=== PATIENT | male | born 1965 | race Caucasian/White ===

== ENCOUNTER 2018-03-14 17:15 | Observation (INO) ==
[2018-03-14] MEDS ORDERED: *HR* HYDROcodone/Acet 5/325 mg TABLET PO PRN (20:31)
[2018-03-14] MEDS ORDERED: Naloxone 0.4 MG/ML INJ IVP PRN (20:31)
[2018-03-14] MEDS ORDERED: Acetaminophen 325 MG TABLET PO PRN (20:31)
--- NOTE | 2018-03-14 20:45 | Internal Med History&Physical ---
Date of Encounter: 03/14/18 Time of Encounter: 20:36 Internal Medicine - H&P: HPI Chief complaint: LE swelling, pain Admitted From: Hospital to Hospital Transfer Plans for Post Hospital Care: Home History of present illness: Mr. Sanchez is a 52 year old male with past medical history of IgA nephritis status post renal transplant, factor V leiden deficiency, transverse myelitis with some residual deficits presents to emergency department in [place] with complaint of lower extremity swelling. He states he does have intermittent swelling and likely time to time but usually goes away after exercise. He states that he did try anxious and by this morning however it remained swollen. It is located in the left lower extremity and started at the calf is currently improved to just ankle down. He also admits to a burning sensation in the calf which is worsened with exercise. He has never experienced anything like this in the past. He denies any recent symptoms of chest pain, shortness of breath, fevers, chills, nausea, vomiting, which is a bowel movement. In the [place] emergency department, he was also noted that his H/H had significantly decreased to 8.6/25.9. His baseline hemoglobin is around 12. He denies any melena or hematochezia. He was recently admitted to [place] one month ago and was diagnosed with pancreatitis and states that his bowel movements have been somewhat loose but has been brown and green in color. He states he was started on an elimination diet has been tolerating this well, however he does admit to occasional epigastric pain. In [place] ED, vital signs were significant for mildly elevated BP at 172/79 , otherwise unremarkable. EKG was reportedly within normal limits. Pounds are significant for H&H as above, P1/creatinine of 20/1.12 which is at baseline. D- dimer was elevated at 1308 however ultrasound was not readily available he was transferred to this facility. Of note, fecal occult blood test was negative. Past medical history as above PShx: hernia, kidney transplant 19 years ago Social: denies smoking, rare alcohol use (2-3/month), denies drug use Family history: father and brother with factor V Past Med Surg Social Fam HX - Past Medical History Medical history: DVT, hypertension, other Additional medical history: transverse myelitis, factor V Psychiatric history: no psych history - Past Surgical History Additional surgical history: kidney transplant, cord decompression - Social History Smoking Status: Never smoker Smokeless Tobacco Status: Yes (Quit 3.5 years ago) Alcohol use: rarely Drug use: none - Family History Father Hx Family Cardiac Disorders: Yes ([place]) Hx Family Endocrine Disorder: Yes (diabetes) Internal Medicine - H&P: Meds CycloSPORINE, Mod (Neoral) [Neoral] 50 mg PO BID 05/20/17 [History] Mycophenolate Sodium [Myfortic] 720 mg PO BID 05/20/17 [History] PredniSONE [Chris] 3 mg PO DAILY 05/20/17 [History] Carvedilol 12.5 mg PO BID 02/11/18 [History] Lisinopril [Zestril] 10 mg PO DAILY 02/11/18 [History] raNITIdine HCl [Zantac] 150 mg PO BID 03/14/18 [History] 3 Allergy/AdvReac Type Severity Reaction Status Date / Time No Known Allergies Allergy Verified 03/14/18 15:04 All Systems PM: A 10-system review of systems was performed and is negative for pertinent findings except as documented above in the HPI. - Constitutional Constitutional: no chills, no fatigue, no fever(s), no malaise - Cardiovascular Cardiovascular ROS IM: edema, no chest pain, no dyspnea, no dyspnea on exertion , no lightheadedness, no orthopnea, no palpitations, no syncope - Respiratory Respiratory: no cough, no dyspnea, no hemoptysis, no dyspnea on exertion, no pain on inspiration - Gastrointestinal Gastrointestinal: abdominal pain, bloating, loose stools, no change in bowel habits, no constipation, no cramping, no diarrhea, no dyspepsia, no hematochezia , no melena, no nausea, no vomiting - Musculoskeletal Musculoskeletal ROS IM: muscle weakness (at baseline), numbness (at baseline), no tingling - Integumentary Integumentary IM: no erythema, no rash, no jaundice - Neurological Neurological ROS: no numbness, no tingling, no weakness - Constitutional Vitals: Temp Pulse Resp BP Pulse Ox 98.0 F 54 14 159/81 100 03/14/18 19:39 03/14/18 19:39 03/14/18 19:39 03/14/18 19:39 03/14/18 19:39 Exam: Gen.: Vitals noted. No acute distress. AAOx3 HEENT: PERRL/EOMI, oropharynx clear, Normocephalic, atraumatic, MMM Cardiac: RRR, no murmur, +S1/S2. Mildly bradycardic Pulmonary: CTA bilaterally, no wheezes, rales or rhonchi, equal chest expansion Abdomen: soft, nontender, BS noted, no guarding, no rebound. MSK: ROM intact, no joint swelling noted. Mild decreased strength on right LE Extremities: No cyanosis or clubbing. LLE with pitting edema from ankle down. Pulses present. No calf tenderness but "he can feel it" Neuro: A&Ox3, moves all extremities, chronic focal defecits Psych: Appropriate mood and behavior Internal Med - H&P Results - Labs CBC & Chem 7: 03/14/18 21:56 - Assessment and plan (1) DVT (deep venous thrombosis) Current Visit: Yes Status: Suspected Assessment and plan: - Suspected DVT with known history of factor V leiden deficiency - Elevated d-dimer in [place], 1308 - No previous history of DVT. No recent trauma or surgery - History of kidney disease with transplant. At baseline levels Plan - Doppler ordered and pending - Will start on heparin gtt and discontinue if negative study - Low suspicion of PE, No chest pain, SOB, bradycardia Qualifiers: DVT location: lower extremity Affected thrombotic vein of extremity: unspecified lower extremity distal vein Chronicity: acute Laterality: left Qualified Code(s): I82.4Z2 - Acute embolism and thrombosis of unspecified deep veins of left distal lower extremity (2) Anemia Current Visit: Yes Status: Acute Assessment and plan: - H/H of 8.6/25.9 - Baseline Hgb around 12, most recently documented 1 month ago - denies signs of bleed, FOBT negative at [place] - Reports epigastric pain, may be related to previous finding of pancreatitis vs gastritis - No abdominal tenderness on exam Plan - Monitor H/H with AM labs. Getting heparin for possible DVT - Consult to GI for possible EGD - NPO midnight - Transfuse as necessary Qualifiers: Anemia type: unspecified type Qualified Code(s): D64.9 - Anemia, unspecified (3) Transverse myelitis Current Visit: Yes Status: Chronic Assessment and plan: at baseline with residual defecits on right. Midchest down (4) Leg edema, left Current Visit: Yes Status: Acute Assessment and plan: as per DVT as above other etiolgies include kidney disease, new onset CHF (5) HTN (hypertension) Current Visit: Yes Status: Chronic Assessment and plan: Mildly elevated at 159/81 Continue home meds Qualifiers: Hypertension type: essential hypertension Qualified Code(s): I10 - Essential (primary) hypertension (6) Renal transplant recipient Current Visit: Yes Status: Chronic Assessment and plan: Secondary to IgA nephritis. - Continue home prednisone and immunosuppresives. - Do not suspect adrenal insufficiency, BP wnl, no abdominal pain. - Time Spent With Patient Total time spent is greater than 50% in coordination of care (as documented) at patient's floor/unit and/or counseling patient:
[2018-03-14] MEDS ORDERED: *HR* Heparin 5,000 UNIT/ML VIAL IVP ONE (20:58)
[2018-03-14] MEDS ORDERED: *HR* Heparin 5,000 UNIT/ML VIAL IVP PRN ×2 (20:58)
[2018-03-14] MEDS ORDERED: Heparin 25,000 UNIT/500 ML D5W 25,000 UNIT/500 ML BAG IVC SCH (21:00)
[2018-03-14] MEDS: CycloSPORINE, Mod (Neoral) 25 MG CAPSULE PO SCH (21:23)
[2018-03-14] MEDS: Mycophenolate Sodium (DR) 180 MG TABLET.DR PO SCH ×2 (21:23→22:57)
[2018-03-14 22:26] LABS: Hematocrit 30.7 % (37.5-50.1); Hemoglobin 10.1 g/dL (12.9-16.9); Mean Corpuscular HGB Conc 32.9 g/dL (31.6-35.5); Mean Corpuscular Hemoglobin 30.7 pg (28.0-33.3); Mean Corpuscular Volume 93.3 fL (83.0-100.0); Mean Platelet Volume 9.8 fL (9.4-12.4); Platelet Count 225 K/mcL (140-400); Red Blood Count 3.29 M/mcL (4.19-5.50); Red Cell Distribution Width 12.8 % (11.5-14.5)
[2018-03-14 22:32] LABS: Heparin anti-factor XA UFH 0.05 IU/mL (0.30-0.70)
[2018-03-14 22:33] LABS: Prothrombin Time 11.6 Seconds (9.4-12.1)
[2018-03-15 05:40] LABS: Basophils % 0.4 %; Eosinophils # 0.3 K/mcL (0.0-0.6); Eosinophils % 5.9 %; Hematocrit 26.4 % (37.5-50.1); Hemoglobin 8.6 g/dL (12.9-16.9); Immature Granulocytes % 0.2 % (0-4); Lymphocytes # 1.4 K/mcL (0.6-4.6); Lymphocytes % 27.1 %; Mean Corpuscular HGB Conc 32.6 g/dL (31.6-35.5); Mean Corpuscular Hemoglobin 29.5 pg (28.0-33.3); Mean Corpuscular Volume 90.4 fL (83.0-100.0); Mean Platelet Volume 9.4 fL (9.4-12.4); Monocytes # 0.6 K/mcL (0.0-1.3); Monocytes % 11.3 %; Neutrophils # 2.9 K/mcL (1.6-8.9); Platelet Count 194 K/mcL (140-400); Red Blood Count 2.92 M/mcL (4.19-5.50); Red Cell Distribution Width 12.9 % (11.5-14.5); Segmented Neutrophils % 55.1 %
[2018-03-15 06:05] LABS: BUN/Creatinine Ratio 19 (6-26); Blood Urea Nitrogen 21 mg/dL (6-20); Calcium 8.5 mg/dL (8.6-10.3); Carbon Dioxide 27 mEq/L (23-29); Chloride 109 mEq/L (98-107); Chol/HDL Ratio 4.2 (0-4.9); Cholesterol 143 mg/dL (< 200); Glucose 101 mg/dL (70-105); HDL Cholesterol 34 mg/dL (40-59); LDL Cholesterol,Calculated 96 mg/dL (0-99); Osmolality,Calculated 295 (280-300); Potassium 3.7 mEq/L (3.5-5.1); Sodium 141 mEq/L (136-145); Triglycerides 63 mg/dL (< 150); eGFR For Non-African Americans > 60 (> 60)
[2018-03-15] MEDS: predniSONE 1 MG TABLET PO SCH (08:37)
[2018-03-15] MEDS: Mycophenolate Sodium (DR) 180 MG TABLET.DR PO SCH ×2 (08:58→21:04)
[2018-03-15] MEDS: CycloSPORINE, Mod (Neoral) 25 MG CAPSULE PO SCH ×2 (08:58→21:04)
--- NOTE | 2018-03-15 09:53 | Internal Med Progress Note ---
Hospitalist Progress Note - Encounter Date of Encounter: 03/15/18 Time of Encounter: 09:47 - Subjective Interval History: Patient seen and examined at bedside Deneis any ain or discomfort. Left leg swollen +1 pitting edema. He does admit to recent long car trip to [place]. He has Hx of factor five Leiden, Cont with heparin until Doppler confirmed. Monitor for bleeding - Exam Vitals: Temp Pulse Resp BP Pulse Ox 98.2 F 56 15 149/78 96 03/15/18 07:48 03/15/18 07:48 03/15/18 07:48 03/15/18 07:48 03/15/18 07:48 Exam: Gen.: Vitals noted. No acute distress. AAOx3 HEENT: PERRL/EOMI, oropharynx clear, Normocephalic, atraumatic, MMM Cardiac: RRR, no murmur, +S1/S2. Mildly bradycardic Pulmonary: CTA bilaterally, no wheezes, rales or rhonchi, equal chest expansion Abdomen: soft, nontender, BS noted, no guarding, no rebound. MSK: ROM intact, no joint swelling noted. Mild decreased strength on right LE Extremities: No cyanosis or clubbing. LLE with pitting edema from ankle down. Pulses present. No calf tenderness Neuro: A&Ox3, moves all extremities, chronic focal defecits Psych: Appropriate mood and behavior - Assessment and Plan (1) Renal transplant recipient Current Visit: Yes Status: Chronic Assessment and Plan: Secondary to IgA nephritis. - Continue home prednisone and immunosuppresives. - Do not suspect adrenal insufficiency, BP wnl, no abdominal pain. (2) HTN (hypertension) Current Visit: Yes Status: Chronic Assessment and Plan: Continue home meds (3) Transverse myelitis Current Visit: Yes Status: Chronic Assessment and Plan: at baseline with residual defecits on right. Midchest down (4) DVT (deep venous thrombosis) Current Visit: Yes Status: Suspected Assessment and Plan: - Suspected DVT with known history of factor V leiden deficiency- vascular preliminary negative will stop Heparin - Elevated d-dimer in [place], 1308 - No previous history of DVT. No recent trauma or surgery - History of kidney disease with transplant. At baseline levels -will consult hematology will need follow up as outpatient - Low suspicion of PE, No chest pain, SOB, bradycardia (5) Epigastric pain Current Visit: No Status: Acute Assessment and Plan: 1- GI consulted appreciate recommendations - will have clear liquids today EGB tomorrow afternoon - has had drop in Hgb -occult stool negative -cont with PPI - (6) Leg edema, left Current Visit: Yes Status: Acute Assessment and Plan: - Venous doppler preliminary is negative for DVT - has hx of renal disease he is at baseline -will check echo to rule out possible new onset CHF - Time Spent with Patient Total time spent is greater than 50% in coordination of care (as documented) at patient's floor/unit and/or counseling patient: Internal Medicine: Result - Labs CBC & Chem 7: 03/15/18 11:14 03/15/18 05:30 Labs: Short CBC 03/14/18 03/15/18 Range/Units 21:56 05:30 WBC 5.5 5.2 (4.3-11.1) K/mcL Hgb 10.1 L D 8.6 L D (12.9-16.9) g/dL Hct 30.7 L 26.4 L (37.5-50.1) % Plt Count 225 194 (140-400) K/mcL Neutrophils # 2.9 (1.6-8.9) K/mcL BMP 03/15/18 05:30 Sodium 141 Potassium 3.7 Chloride 109 H Carbon Dioxide 27 BUN 21 H Creatinine 1.13 Glucose 101 Calcium 8.5 L - ABG Interpretation ABG results: PT/INR, D-dimer PT 11.6 Seconds (9.4-12.1) 03/14/18 21:56 (2) HTN (hypertension) Qualifiers: Hypertension type: essential hypertension Qualified Code(s): I10 - Essential (primary) hypertension (4) DVT (deep venous thrombosis) Qualifiers: DVT location: lower extremity Affected thrombotic vein of extremity: unspecified lower extremity distal vein Chronicity: acute Laterality: left Qualified Code(s): I82.4Z2 - Acute embolism and thrombosis of unspecified deep veins of left distal lower extremity
[2018-03-15 11:40] LABS: Hematocrit 28.7 % (37.5-50.1); Hemoglobin 9.5 g/dL (12.9-16.9)
--- NOTE | 2018-03-15 12:46 | Gastroenterology Consult Note ---
<Luc Dior kAilah - Last Filed: 03/15/18 12:44> Date of Encounter: 03/15/18 Time of Encounter: 11:45 - Assessment and plan (1) Anemia Current Visit: Yes Status: Acute Assessment and plan: Hgb 8.6 at [place] ED, with baseline around 12. On admission here, Hgb 10.1 and this AM Hgb 8.6. Plan for EGD and colonoscopy tomorrow if Doppler negative for DVT. Patient refused to sign consent until he spoke with Dr. Low about the procedures and his history of renal transplant. Qualifiers: Anemia type: unspecified type Qualified Code(s): D64.9 - Anemia, unspecified (2) Epigastric pain Current Visit: No Status: Acute Assessment and plan: Continue PPI, plan for EGD. (3) Leg edema, left Current Visit: Yes Status: Acute Assessment and plan: If Doppler negative for DVT, will plan for scopes tomorrow. - Time Spent With Patient Total time spent is greater than 50% in coordination of care (as documented) at patient's floor/unit and/or counseling patient: GI History of Present Illness - Data of Consult Patient: new to practice Consult date: 03/15/18 Requesting Physician: India Zacarias MD - Consult Narrative Reason for consult: Anemia, gastritis History of present illness: Mr. Sanchez is a 52 year old male with PMHx of IgA nephritis status post renal transplant, factor V leiden deficiency, transverse myelitis with some residual deficits, DVT, HTN who presented to the ED at [place] with left lower extremity swelling. He denies fever, chills, chest pain shortness of breath, nausea, vomiting, melena, or hematochezia. He was found to have Hgb 8.6 with baseline around 12. On admission here, Hgb 10.1 and this AM Hgb 8.6. D-Dimer in ED was elevated to 1308 concerning for DVT. He was recently admitted to [place] one month ago and was diagnosed with pancreatitis. We were consulted to evaluate his anemia. Procedures: None NSAIDs: None Anticoagulation: None Past Med Surg Social Fam HX - Past Medical History Medical history: DVT, hypertension, other Additional medical history: transverse myelitis, factor V Psychiatric history: no psych history - Past Surgical History Additional surgical history: kidney transplant, cord decompression - Social History Smoking Status: Never smoker Smokeless Tobacco Status: Yes (Quit 3.5 years ago) Alcohol use: rarely Drug use: none - Family History Father Hx Family Cardiac Disorders: Yes ([place]) Hx Family Endocrine Disorder: Yes (diabetes) - Gastrointestinal Gastrointestinal: Present: as per HPI - Constitutional Constitutional: as per HPI - EENT Eyes: as per HPI Ears: Present: as per HPI Nose, mouth and throat: Present: as per HPI - Cardiovascular Cardiovascular ROS: Present: as per HPI - Respiratory Respiratory IM: Present: as per HPI - Genitourinary Genitourinary: Absent: change in color, Urinary frequency - Neurological ROS Neurological GI: Present: as per HPI - Hematologic/Lymphatic Hematologic/Lymphatic pediatric: Present: as per HPI - Musculoskeletal Musculoskeletal ROS GI: Present: as per HPI - Integumentary Integumentary GI: Present: as per HPI - Psychiatric ROS Psychiatric GI: Present: as per HPI - Endocrine Endocrine IM: Present: as per HPI - Constitutional Vitals: Temp Pulse Resp BP Pulse Ox 98.0 F 60 15 149/69 99 03/15/18 11:31 03/15/18 11:31 03/15/18 11:31 03/15/18 11:31 03/15/18 11:31 General appearance: Present: cooperative, A&O X 3, no acute distress, answers questions appropriately - Head Head exam: Present: atraumatic, normocephalic - Eye Eye exam: Present: normal appearance, sclera anicteric - ENT ENT exam: Present: mucous membranes dry - Neck Neck exam general surgery: Present: normal inspection, trachea midline - Respiratory Respiratory exam: Present: CTAB. Absent: rales, rhonchi, wheezes - Cardiovascular Cardiovascular exam: Present: RRR, +S1, +S2 - GI/Abdominal GI/Abdominal exam: Present: soft, no peritoneal signs. Absent: distended, firm , guarding, tenderness - Rectal Rectal exam: Present: deferred - Extremities Exam Extremities exam: Present: warm - Neurological Exam Neurological exam: Present: no focal deficits - Psychiatric Psychiatric exam: Present: normal affect, normal mood - Skin Skin exam: Present: dry, intact, normal color, warm Results - Labs CBC & Chem 7: 03/15/18 11:14 03/15/18 05:30 Labs: Last Result Calcium 8.5 mg/dL (8.6-10.3) L 03/15/18 05:30 Triglycerides 63 mg/dL (< 150) 03/15/18 05:30 Entire Visit Hgb 9.5 g/dL (12.9-16.9) L 03/15/18 11:14 Hct 28.7 % (37.5-50.1) L 03/15/18 11:14 PT 11.6 Seconds (9.4-12.1) 03/14/18 21:56 - ABG ABG results: PT/INR, D-dimer PT 11.6 Seconds (9.4-12.1) 03/14/18 21:56 <José Miguel Low - Last Filed: 03/15/18 17:45> Date of Encounter: 03/15/18 - Time Spent With Patient Total time spent is greater than 50% in coordination of care (as documented) at patient's floor/unit and/or counseling patient: GI History of Present Illness - Data of Consult Requesting Physician: India Zacarias MD - Consult Narrative History of present illness: Mr. Sanchez is a 52 year old male - Constitutional Vitals: Temp Pulse Resp BP Pulse Ox 98.1 F 56 15 150/81 98 03/15/18 15:11 03/15/18 15:11 03/15/18 15:11 03/15/18 15:11 03/15/18 15:11 Results - Labs CBC & Chem 7: 03/15/18 11:14 03/15/18 05:30 Labs: Last Result Calcium 8.5 mg/dL (8.6-10.3) L 03/15/18 05:30 Triglycerides 63 mg/dL (< 150) 03/15/18 05:30 Entire Visit Hgb 9.5 g/dL (12.9-16.9) L 03/15/18 11:14 Hct 28.7 % (37.5-50.1) L 03/15/18 11:14 PT 11.6 Seconds (9.4-12.1) 03/14/18 21:56 - ABG ABG results: PT/INR, D-dimer PT 11.6 Seconds (9.4-12.1) 03/14/18 21:56 - Attending Attestation I have personally performed a face to face evaluation on this patient. I have reviewed and agree with the care plan. History and Exam by me shows: Patient seen. Patient with severe anemia and epigastric pain. Denies any overt bleeding. No previous endoscopy. On Examination does has mild swelling on his left ankle but is improved than before per patient. Stomach: Patient with severe anemia. Patient has history of renal transplant and is on immunosuppressive medication Recommendation: EGD colonoscopy to rule out upper GI and lower GI causes for his anemia
[2018-03-15] MEDS ORDERED: SODIUM CHLORIDE/NAHCO3/KCL/PEG 4,000 ML SOLN.RECON PO ONE (17:00)
[2018-03-16 05:22] LABS: Immature Reticulocyte % 7.3 % (11.0-38.0); Retculocyte # 0.04 M/mcL (0.05-0.10); Reticulocyte % 1.4 % (1.6-2.8)
[2018-03-16 05:23] LABS: Basophils % 0.5 %; Eosinophils # 0.2 K/mcL (0.0-0.6); Eosinophils % 4.3 %; Hematocrit 26.2 % (37.5-50.1); Hemoglobin 8.8 g/dL (12.9-16.9); Immature Granulocytes % 0.2 % (0-4); Lymphocytes # 1.2 K/mcL (0.6-4.6); Lymphocytes % 27.7 %; Mean Corpuscular HGB Conc 33.6 g/dL (31.6-35.5); Mean Corpuscular Hemoglobin 30.1 pg (28.0-33.3); Mean Corpuscular Volume 89.7 fL (83.0-100.0); Mean Platelet Volume 9.9 fL (9.4-12.4); Monocytes # 0.5 K/mcL (0.0-1.3); Monocytes % 10.7 %; Neutrophils # 2.5 K/mcL (1.6-8.9); Platelet Count 208 K/mcL (140-400); Red Blood Count 2.92 M/mcL (4.19-5.50); Red Cell Distribution Width 13.1 % (11.5-14.5); Segmented Neutrophils % 56.6 %
[2018-03-16 05:34] LABS: % Iron Saturation 14 % (20-55); BUN/Creatinine Ratio 15 (6-26); Blood Urea Nitrogen 15 mg/dL (6-20); Calcium 8.5 mg/dL (8.6-10.3); Carbon Dioxide 25 mEq/L (23-29); Chloride 109 mEq/L (98-107); Glucose 94 mg/dL (70-105); Iron 35 mcg/dL (65-175); Osmolality,Calculated 291 (280-300); Potassium 3.6 mEq/L (3.5-5.1); Sodium 140 mEq/L (136-145); Transferrin 182 mg/dL (203-362); eGFR For Non-African Americans > 60 (> 60)
[2018-03-16 06:05] LABS: Folate > 22.3 ng/mL (3.0-16.0); Vitamin B12 > 1500 pg/mL (250-1100)
--- NOTE | 2018-03-16 09:24 | Internal Med Progress Note ---
Hospitalist Progress Note - Encounter Date of Encounter: 03/16/18 Time of Encounter: 09:24 - Subjective Interval History: Patient seen and examined at bedside Deneis any pain or discomfort. Left leg swollen +1 pitting edema. Awaiting echo results-he is NPO for EGD today-no active bleeding noted - Exam Vitals: Temp Pulse Resp BP Pulse Ox 98.0 F 56 15 159/77 99 03/16/18 08:01 03/16/18 08:01 03/16/18 08:01 03/16/18 08:01 03/16/18 08:01 Exam: Gen.: Vitals noted. No acute distress. AAOx3 HEENT: PERRL/EOMI, oropharynx clear, Normocephalic, atraumatic, MMM Cardiac: RRR, no murmur, +S1/S2. Mildly bradycardic Pulmonary: CTA bilaterally, no wheezes, rales or rhonchi, equal chest expansion Abdomen: soft, nontender, BS noted, no guarding, no rebound. MSK: ROM intact, no joint swelling noted. Mild decreased strength on right LE Extremities: No cyanosis or clubbing. LLE with pitting edema from ankle down. Pulses present. No calf tenderness Neuro: A&Ox3, moves all extremities, chronic focal defecits Psych: Appropriate mood and behavior - Assessment and Plan (1) Renal transplant recipient Current Visit: Yes Status: Chronic Assessment and Plan: Secondary to IgA nephritis. - Continue home prednisone and immunosuppresives. - Do not suspect adrenal insufficiency, BP wnl, no abdominal pain-has epigastric pain (2) HTN (hypertension) Current Visit: Yes Status: Chronic Assessment and Plan: Continue home meds (3) Transverse myelitis Current Visit: Yes Status: Chronic Assessment and Plan: at baseline with residual defecits on right. Midchest down (4) Epigastric pain Current Visit: No Status: Acute Assessment and Plan: 1- GI consulted appreciate recommendations - will have clear liquids today EGB tomorrow afternoon - has had drop in Hgb -occult stool negative -cont with PPI - (5) Leg edema, left Current Visit: Yes Status: Acute Assessment and Plan: - Venous doppler preliminary is negative for DVT - has hx of renal disease he is at baseline -will check echo to rule out possible new onset CHF -awaiting results (6) DVT (deep venous thrombosis) Current Visit: Yes Status: Suspected Assessment and Plan: - Suspected DVT with known history of factor V leiden deficiency- vascular doppler negative for DVT- stop Heparin - Elevated d-dimer in [place], -1308 - No previous history of DVT. No recent trauma or surgery- has had long car trip to [place] - History of kidney disease with transplant. At baseline levels -will consult hematology will need follow up as outpatient - Low suspicion of PE, No chest pain, SOB, bradycardia - Time Spent with Patient Total time spent is greater than 50% in coordination of care (as documented) at patient's floor/unit and/or counseling patient: Internal Medicine: Result - Labs CBC & Chem 7: 03/16/18 04:43 03/16/18 04:43 Labs: Short CBC 03/15/18 03/16/18 Range/Units 11:14 04:43 WBC 4.4 (4.3-11.1) K/mcL Hgb 9.5 L 8.8 L (12.9-16.9) g/dL Hct 28.7 L 26.2 L (37.5-50.1) % Plt Count 208 (140-400) K/mcL Neutrophils # 2.5 (1.6-8.9) K/mcL BMP 03/16/18 04:43 Sodium 140 Potassium 3.6 Chloride 109 H Carbon Dioxide 25 BUN 15 Creatinine 1.03 Glucose 94 Calcium 8.5 L - ABG Interpretation ABG results: PT/INR, D-dimer PT 11.6 Seconds (9.4-12.1) 03/14/18 21:56 Consult Discharge Plan - Plan Referrals: Joan Jean-Baptiste MD [Partnered Physician] - 03/26/18 1:00 pm (2) HTN (hypertension) Qualifiers: Hypertension type: essential hypertension Qualified Code(s): I10 - Essential (primary) hypertension (6) DVT (deep venous thrombosis) Qualifiers: DVT location: lower extremity Affected thrombotic vein of extremity: unspecified lower extremity distal vein Chronicity: acute Laterality: left Qualified Code(s): I82.4Z2 - Acute embolism and thrombosis of unspecified deep veins of left distal lower extremity
[2018-03-16] MEDS: Mycophenolate Sodium (DR) 180 MG TABLET.DR PO SCH ×2 (10:56→21:14)
[2018-03-16] MEDS: CycloSPORINE, Mod (Neoral) 25 MG CAPSULE PO SCH ×2 (10:57→21:14)
[2018-03-16] MEDS: predniSONE 1 MG TABLET PO SCH (10:57)
--- NOTE | 2018-03-16 11:39 | Anesthesia Evaluation PreOp ---
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) Other Medical History: Renal (kidney transplant), Other (factor 5 Leiden) Anesthesia History: No Prior Anesthetic Complications, Past Anesthesia (kidney transplant to right side) Alcohol Use: rarely Drug use: none Medications and Allergies CycloSPORINE, Mod (Neoral) [Neoral] 50 mg PO BID 05/20/17 [History] Mycophenolate Sodium [Myfortic] 720 mg PO BID 05/20/17 [History] PredniSONE [Chris] 3 mg PO DAILY 05/20/17 [History] Carvedilol 12.5 mg PO BID 02/11/18 [History] Lisinopril [Zestril] 10 mg PO DAILY 02/11/18 [History] raNITIdine HCl [Zantac] 150 mg PO BID 03/14/18 [History] 3 Allergy/AdvReac Type Severity Reaction Status Date / Time No Known Allergies Allergy Verified 03/14/18 15:04 - Meds/Allergy Pre-op Review Medications Reviewed: Yes Allergies Reviewed: Yes Beta Blockers on Current Med List: Yes If Beta Blockers taken, Date/Time (Last Dose taken): 03/15/2018 at 1804 Anesthesia Results - Labs 03/16/18 04:43 03/16/18 04:43 - Imaging EKG: report reviewed (02/11/2018 SINUS RHYTHM) Additional studies: 03/16/2018 Echo Impressions: LVEF 60-65%. Normal LV chamber size and function. Mild concentric left ventricular hypertrophy. Normal left ventricular diastolic function. Normal right ventricular structure and function. No evidence of pulmonary hypertension. No significant valvular dysfunction. Anesthesia Exam Vital Signs/O2 Sat, Most Current Temp Pulse Resp BP Pulse Ox 98.3 F 50 15 166/81 99 03/16/18 10:50 03/16/18 10:50 03/16/18 10:50 03/16/18 10:50 03/16/18 10:50 Height: 6'/1.83m Weight: 170 lbs/77.3 kg NPO (# of Hours): 8 Pain Scale: 0 Pain Scale Used: Numeric (1 - 10) - HEENT Pupil (Motor): EOMI Mallampati: II Teeth: Normal (broken right upper molar and left lower molar) Oral Opening: Greater than 3 - [employer] LOC: Oriented [employer] Motor: Normal RUE, Normal LUE, Normal LLE, Normal Face, Deficit RLE [employer] Sensory: Normal: RUE, LUE, Face, Deficit: RLE (neuropathy, numbness), LLE ( neuropathy) - Cardiac Rhythm: Regular Murmur: None - Pulmonary Breath Sounds: bilateral Clear Respiratory Effort: Symmetrical Anesthesia Assess/Plan ASA Score: 3 Modified [place] Scale for Level of Consciousness: Cooperative, oriented, and tranquil Anesthetic Plan: MAC Monitoring Plan: Standard Monitors
[2018-03-16] MEDS ORDERED: Propofol 500 MG/50 ML INFUS..BTL ONE (13:03)
[2018-03-16] MEDS ORDERED: Lidocaine -MPF 2% 2 ML VIAL ONE (13:03)
[2018-03-17 05:25] LABS: Basophils % 0.5 %; Eosinophils # 0.3 K/mcL (0.0-0.6); Eosinophils % 7.1 %; Hematocrit 27.7 % (37.5-50.1); Hemoglobin 9.1 g/dL (12.9-16.9); Immature Granulocytes % 0.2 % (0-4); Lymphocytes # 1.3 K/mcL (0.6-4.6); Lymphocytes % 29.2 %; Mean Corpuscular HGB Conc 32.9 g/dL (31.6-35.5); Mean Corpuscular Hemoglobin 30.6 pg (28.0-33.3); Mean Corpuscular Volume 93.3 fL (83.0-100.0); Monocytes # 0.7 K/mcL (0.0-1.3); Monocytes % 14.8 %; Neutrophils # 2.1 K/mcL (1.6-8.9); Platelet Count 204 K/mcL (140-400); Red Blood Count 2.97 M/mcL (4.19-5.50); Red Cell Distribution Width 13.1 % (11.5-14.5); Segmented Neutrophils % 48.2 %
[2018-03-17 05:49] LABS: BUN/Creatinine Ratio 13 (6-26); Blood Urea Nitrogen 14 mg/dL (6-20); Carbon Dioxide 25 mEq/L (23-29); Chloride 111 mEq/L (98-107); Glucose 96 mg/dL (70-105); Osmolality,Calculated 294 (280-300); Potassium 3.6 mEq/L (3.5-5.1); Sodium 142 mEq/L (136-145); eGFR For Non-African Americans > 60 (> 60)
[2018-03-17 06:29] VITALS: BP 148/71
[2018-03-17] MEDS: Mycophenolate Sodium (DR) 180 MG TABLET.DR PO SCH (08:23)
[2018-03-17] MEDS: CycloSPORINE, Mod (Neoral) 25 MG CAPSULE PO SCH (08:24)
[2018-03-17] MEDS: predniSONE 1 MG TABLET PO SCH (08:25)
--- NOTE | 2018-03-17 08:55 | Discharge Summary ---
- NOTES TO OUTPATIENT PROVIDER Notes to Outpatient Provider: Hematology - follow up - PLaced on Iron oral - will monitor CBC. GI upper / lower scope negative Orders not resulted at time of discharge: Pending orders 03/16/18 04:43 Ferritin Routine Iron Profile AM 0400 03/16/18 14:39 Surgical Pathology [PTH] Routine 03/18/18 04:00 CBC [Complete Blood Count] [HEME] AM 0400 Chem 7 [Basic Metabolic Panel] AM 0400 Date of Encounter: 03/17/18 Time of Encounter: 08:51 - Discharge Diagnosis (1) Renal transplant recipient Priority: Secondary Status: Chronic (2) HTN (hypertension) Priority: Secondary Status: Chronic Qualifiers: Hypertension type: essential hypertension Qualified Code(s): I10 - Essential (primary) hypertension (3) Transverse myelitis Priority: Secondary Status: Chronic (4) Epigastric pain Priority: Secondary Status: Acute (5) Leg edema, left Priority: Primary Status: Acute Hospital course: Mr. 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 He presented to [place] [facility] with L lower leg swelling. He has had swelling in the past and it would usually resolve after exercise, however this swelling did not improve after exercise. He denies any injury however does admit to recent car ride ti [place]. Lab work did reveal a drop in HGB stool was negative for blood. EKG with no ST T wave abnormalities D dimer was elevated -He was transfered to [place] for further workup- Venous doppler was negative for DVT. HGB cont to be low GI consulted upper and lower scope completed with no bleeding noted. Anemia work up did show low iron and patient started on oral iron. echo completed- 60-65% EF Normal LV chamber Mild concentric left ventricular hypertrophy normal right ventricular structure and function no pulmonary htn no significant valvular dysfunction I did review with Hem?Onc who will see patient as outpatient. left lower swelling has resolved I reviewed results with the patient advised to follow up with PCP and hematology. We will have CBC completed prior to hem/onc visit Patient was given prescription for iron and colace. He verbalized understanding and is ready for discharge Discharge discussed with: patient - Time Spent with Patient Total time spent providing and/or coordinating discharge services: - Discharge Medications Prescriptions: Docusate [Colace] 100 mg PO DAILY #30 capsule Ferrous Sulfate 325 mg PO DAILY@0800 #30 tablet Home Medications: CycloSPORINE, Mod (Neoral) [Neoral] 50 mg PO BID 05/20/17 [History] Mycophenolate Sodium [Myfortic] 720 mg PO BID 05/20/17 [History] PredniSONE [Chris] 3 mg PO DAILY 05/20/17 [History] Carvedilol 12.5 mg PO BID 02/11/18 [History] Lisinopril [Zestril] 10 mg PO DAILY 02/11/18 [History] raNITIdine HCl [Zantac] 150 mg PO BID 03/14/18 [History] Docusate [Colace] 100 mg PO DAILY #30 capsule 03/17/18 [Rx] Ferrous Sulfate 325 mg PO DAILY@0800 #30 tablet 03/17/18 [Rx] Allergies/Adverse Reactions: 3 Allergy/AdvReac Type Severity Reaction Status Date / Time No Known Allergies Allergy Verified 03/14/18 15:04 Date of admission: 03/14/18 19:35 Primary care physician: PCP NONE Consults: 03/14/18 20:34 Consult to Gastroenterology [CONS] Routine Consulting Provider: Gastroenterology [facility] Reason for Consult: anemia, gastritis symptoms Call Completed: No Discharging clinician: Cici Adamson Anticipated date of discharge: 03/17/18 - Constitutional Vitals: Temp Pulse Resp BP Pulse Ox 98.1 F 71 16 148/71 97 03/17/18 06:28 03/17/18 06:28 03/17/18 06:28 03/17/18 06:28 03/17/18 06:28 General appearance: Present: A&O X 3 - Head Head exam: Present: atraumatic, normocephalic - Eye Eye exam: Present: PERRL, conjuntiva pink, sclera anicteric Pupils: Present: PERRL - Neck Neck exam general surgery: Present: supple, trachea midline. Absent: lymphadenopathy - Respiratory Respiratory exam: Present: CTAB. Absent: accessory muscle use, rales, rhonchi, wheezes - Cardiovascular Cardiovascular exam: Present: RRR, +S1, +S2. Absent: diastolic murmur, gallop, rubs, systolic murmur - GI/Abdominal GI/Abdominal exam: Present: normal bowel sounds, soft, no peritoneal signs. Absent: distended, tenderness - Extremities Exam Extremities exam: Present: warm, radial pulses palpable and symmetrical. Absent : calf tenderness, cyanotic, pedal edema - Neurological Exam Neurological exam: Present: CN II-XII intact, oriented X3, no focal deficits. Absent: pronater drift, facial droop, speech deficit - Skin Skin exam: Present: dry, intact - Patient Status Disposition: Home, Self-Care Condition: Good Functional capacity at discharge: independent ambulation Overall status at discharge: patient is back to baseline - Discharge Instructions Instructions: Anemia (GEN) Follow Up With: Joan Jean-Baptiste MD [Partnered Physician] - 03/26/18 1:00 pm - Diet and Activity Activity: increase activity as tolerated Diet: advance to your usual diet
[2018-03-17 09:08] LABS: Ferritin 210 ng/mL (20-250)
== END 2018-03-17 10:41 | disposition home or self-care (01) ==
LOC: 3BNU
PROVIDERS: ADMIT Family Medicine; ATTEND Family Medicine
PROC: ENDOEBX (2018-03-16 13:30)